=== PATIENT | female | born 1980 | race African-American/Black ===

== ENCOUNTER 2017-03-03 20:53 | Emergency (ER) | payer MEDICAID ==
[~2017-03-03] VITALS: Ht 165.1 cm; Wt 81.6 kg
[2017-03-03 20:56] VITALS: BP_SYST 143
[2017-03-03] MEDS ORDERED: BACITRACIN 1 GM OINT TP ONE (21:56)
--- NOTE | 2017-03-03 22:41 | NUR ---
Patient to [facility] for evaluation. Side rails up. Report given to ARTHUR TEMPLE.
--- NOTE | 2017-03-03 22:45 | NUR ---
Patient AAO x4, sitting in bed, crying and c/o throat pain 10/10, patient able to verbalized needs speaking in full sentences without pauses. Patient very anxious and crying. Vital signs stable. Md aware of patient condition. Will continue to monitor.
--- NOTE | 2017-03-03 23:00 | NUR ---
CHRISTINA Perez at bedside examining patient.
[2017-03-03] MEDS ORDERED: KETOROLAC TROMETHAMINE 60 MG/2 ML VIAL IM ONE (23:15)
[2017-03-03] MEDS ORDERED: DEXAMETHASONE SOD PHOSPHATE 10 MG/ML VIAL IM ONE (23:15)
[2017-03-03] MEDS ORDERED: FLUCONAZOLE 200 MG TABLET (DIFLUCAN) PO ONE (23:45)
[2017-03-03] MEDS ORDERED: AMOXICILLIN/CLAVULANATE POTASSIUM 875 MG TABLET PO ONE (23:45)
[2017-03-04] MEDS ORDERED: FLUCONAZOLE 100 MG TABLET (DIFLUCAN) ONE (00:28)
[2017-03-04 00:58] VITALS: BP_SYST 130
--- NOTE | 2017-03-04 00:58 | NUR ---
Patient given written and verbal discharge instructions and verbalizes understanding. ER MD discussed with patient the results and treatment provided. Patient in stable condition. ID arm band removed. Rx of augmentin and nystatin given. Patient educated on pain management and to follow up with PMD. Pain Scale 0/10. Opportunity for questions provided and answered.
== END 2017-03-04 00:58 | disposition home or self-care (01) ==
LOC: SED 23:03
DX: J02.9 Acute pharyngitis, unspecified (principal); R50.9 Fever, unspecified; R03.0 Elevated blood-pressure reading, without diagnosis of hypertension
CPT/HCPCS: 96372; 99284; J1100; J1885